=== PATIENT | female | born 1965 | race Caucasian/White ===

== ENCOUNTER 2022-03-26 11:34 | Emergency (ER) | payer MEDICARE ==
[~2022-03-26] VITALS: Ht 152.4 cm; Wt 63.5 kg
--- NOTE | 2022-03-26 11:43 | ED Lower Extremity ---
General Chief Complaint: Lower Extremity Stated Complaint: LT TOE PAIN History of Present Illness Date Seen by Provider: Mar 26, 2022 Time Seen by Provider: 11:42 Initial Comments 56-year-old female presents with an ingrown toenail on the left great toe. She reports has been that way for a while. She presents because she did not want to wait at urgent care to see if they would remove it. Patient has not follow-up with her primary care provider. Patient complains of some mild pain. There is no redness, warmth, swelling. Patient with no other complaint Allergies and Home Medications Allergies Coded Allergies: No Known Drug Allergies (Unverified , 03/26/22) Patient Home Medication List Home Medication List Reviewed: Yes Review of Systems Constitutional: No chills, No fever EENTM: no symptoms reported Respiratory: no symptoms reported Cardiovascular: no symptoms reported Gastrointestinal: no symptoms reported Genitourinary: no symptoms reported Musculoskeletal: see HPI Skin: see HPI Physical Exam Vital Signs Vital Signs - First Documented 03/26/22 11:43 Temp 36.5 Pulse 81 Resp 18 B/P (MAP) 132/79 (96) O2 Delivery Room Air Capillary Refill : Height, Weight, BMI Height: '" Weight: lbs. oz. kg; BMI Method: General Appearance: WD/WN, no apparent distress Cardiovascular: normal peripheral pulses, regular rate, rhythm Respiratory: lungs clear, normal breath sounds Feet: left foot other (Chronic ingrown toenail left great toe) Neurologic/Psychiatric: alert, normal mood/affect Skin: normal color, warm/dry; No ecchymosis Progress/Results/Core Measures Results/Orders My Orders Orders - ZACH CRUM DO Lidocaine 1% Inj 20 Ml (Xylocaine 1% Inj (03/26/22 12:00) Vital Signs/I&O 03/26/22 11:43 Temp 36.5 Pulse 81 Resp 18 B/P (MAP) 132/79 (96) O2 Delivery Room Air Progress Progress Note : Progress Note Patient with chronic ingrown toenail with no other acute emergency. We made her an appointment with Maddy Hodges on 03/28/2022 at 12:30 PM. Patient was provided the information. She is discharged home in stable condition Departure Impression Primary Impression: Ingrown toenail Disposition: 01 HOME, SELF-CARE Condition: Stable Departure-Patient Inst. Referrals: SANDY LEI (PCP) Primary Care Physician KORI CARVAJAL MD (Family) Primary Care Physician Patient Instructions: Ronni Alamo Add. Discharge Instructions: Please keep your appointment on at 1230 at [facility]. All discharge instructions reviewed with patient and/or family. Voiced understanding. ZACH CRUM DO Mar 26, 2022 11:42
[2022-03-26] MEDS ORDERED: LIDOCAINE 1% INJ 20 ML VIAL IJ ONE (12:00)
[2022-03-26 12:33] VITALS: BP 134/76
== END 2022-03-26 12:33 | disposition home or self-care (01) ==
LOC: EDUNIT# 11:34 → ER FS 11:38
DX: L60.0 Ingrowing nail (principal); F17.210 Nicotine dependence, cigarettes, uncomplicated; Z28.310 Unvaccinated for COVID-19
CPT/HCPCS: 99281